=== PATIENT | male | born 1995 | race Caucasian/White ===

== ENCOUNTER → 2022-08-06 | Outpatient (REF) | LOC: M PLAIMG 08:37 | PROVIDERS: ATTEND Internal Medicine | DX: M25.562 Pain in left knee (principal) ==

== ENCOUNTER → 2024-06-20 | Outpatient (CLI) | payer OTHER ==
[2024-06-20 18:09] LABS: BASO # 0.1 10^3/uL (0.0-0.2); BASO % 0.7 % (0.0-1.0); EOS # 0.1 10^3/uL (0.0-0.5); EOS % 1.1 % (0.0-3.0); LYMPH # 1.7 10^3/uL (1.5-5.0); LYMPH % 22.9 % (24.0-44.0); MEAN CORPUSCULAR HEMOGLOBIN 30.8 pg (27.0-33.0); MEAN CORPUSCULAR HGB CONC 34.8 g/dl (32.0-36.5); MEAN CORPUSCULAR VOLUME 88.6 fl (80.0-96.0); MONO # 0.5 10^3/uL (0.0-0.8); MONO % 7.2 % (2.0-8.0); NEUTROPHILS # 4.9 10^3/uL (1.5-8.5); PLATELET COUNT, AUTOMATED 305 10^3/uL (150-450); RED BLOOD COUNT 5.19 10^6/uL (4.30-6.10); WHITE BLOOD COUNT 7.3 10^3/uL (4.0-10.0)
[2024-06-20 18:18] LABS: ERYTHROCYTE SEDIMENTATION RATE 4 mm/hr (0-15)
[2024-06-20 18:38] LABS: ALBUMIN 4.2 G/DL (3.2-5.2); ALKALINE PHOSPHATASE 71 U/L (40-129); ALT/SGPT 16 U/L (7.0-40); AST/SGOT 12 U/L (<34); BILIRUBIN,TOTAL 0.6 MG/DL (0.3-1.2); BLOOD UREA NITROGEN 15 MG/DL (9-23); CALCIUM LEVEL 9.4 MG/DL (8.5-10.1); CARBON DIOXIDE LEVEL 31 MMOL/L (20-31); CHLORIDE LEVEL 103 MMOL/L (98-107); CREATININE FOR GFR 0.96 MG/DL (0.70-1.30); GLOMERULAR FILTRATION RATE > 60.0 (>60); GLUCOSE, FASTING 80 MG/DL (60-100); SODIUM LEVEL 141 MMOL/L (136-145); TOTAL PROTEIN 7.4 G/DL (5.7-8.2)
[2024-06-20 18:39] LABS: FOLATE 17.2 NG/ML (>5.4); THYROXINE (T4) 8.4 UG/DL (4.5-10.9); VITAMIN B12 LEVEL 542 PG/ML (211-911)
[2024-06-20 18:40] LABS: FREE THYROXINE INDEX 3.6 % (1.4-3.8); T UPTAKE 43.4 % (22.5-37.0)
[2024-06-22 18:42] LABS: ANA SCREEN, IFA NEGATIVE (NEGATIVE)
[2024-06-24 17:26] LABS: VITAMIN E(ALPHA TOCOPHEROL) 11.5 mg/L (5.7-19.9); VITAMIN E(GAMMA TOCOPHEROL) < 1.0 mg/L (<=4.3)
[2024-06-25 19:22] LABS: VITAMIN B6,PYRIDOXAL PHOSPHATE 43.7 ng/mL (2.1-21.7)
== END ==
LOC: M PLALAB 15:33
PROVIDERS: ATTEND Psychiatry & Neurology Neurology
DX: E53.8 Deficiency of other specified B group vitamins (principal); E07.9 Disorder of thyroid, unspecified; R41.3 Other amnesia

== ENCOUNTER 2024-12-12 13:22 | Emergency (ER) | payer OTHER ==
[~2024-12-12] VITALS: Ht 185.4 cm; Wt 90.9 kg
[2024-12-12] MEDS ORDERED: ADDE15CA3 PO (13:35)
[2024-12-12] MEDS ORDERED: ADDE1TAB14 PO (13:35)
[2024-12-12] MEDS: KETOROLAC 30 MG/ML 1 ML VIAL IV ONE (14:46)
[2024-12-12] MEDS: dexAMETHasone 4 MG/ML 1 ML VIAL IV ONE (14:47)
[2024-12-12] MEDS: MORPHINE 4 MG/ML 1 ML VIAL IV ONE ×2 (16:16→19:07)
[2024-12-12] MEDS: ACETAMINOPHEN *IV* 1,000 MG in IV 1 EA IV ONE (17:05)
[2024-12-12] MEDS: METHOCARBAMOL 1,000 MG/10 ML VIAL IV ONE (17:08)
[2024-12-12 22:16] VITALS: BP 135/63; TEMP 97.9; O2SAT 97
[2024-12-12] MEDS ORDERED: METH-1164 PO (23:00)
[2024-12-12] MEDS: OXYCODONE/APAP 5MG/325MG(HOME DOSE PACK) PO ONE (23:19)
== END 2024-12-12 23:31 | disposition home or self-care (01) ==
LOC: EDBD 13:22 → M ED 13:47
DX: M54.50 Low back pain, unspecified (principal); M51.27 Other intervertebral disc displacement, lumbosacral region; M47.816 Spondylosis without myelopathy or radiculopathy, lumbar region; F90.9 Attention-deficit hyperactivity disorder, unspecified type; Z79.899 Other long term (current) drug therapy
CPT/HCPCS: 72148; 72195; 96365; 96375; 96376; 99285; J0131; J1100; J1885; J2800